=== PATIENT | female | born 1955 | race Asian ===

== ENCOUNTER 2018-09-01 14:34 | Emergency (ER) | payer MEDICAID ==
[~2018-09-01] VITALS: Ht 157.5 cm; Wt 57.2 kg
[~2018-09-01 14:34] MED LIST: AMO500 PO; BIA500 PO; PRI20 PO; ZOC20 PO
[2018-09-01 14:46] VITALS: BP 151/76; Ht 157.5 cm; Wt 57.2 kg
== END 2018-09-01 15:55 | disposition home or self-care (01) ==
LOC: ED 14:34
DX: H11.32 Conjunctival hemorrhage, left eye (principal); E78.00 Pure hypercholesterolemia, unspecified

== ENCOUNTER 2019-07-20 14:58 | Emergency (ER) | payer MEDICAID ==
[~2019-07-20] VITALS: Ht 157.5 cm; Wt 58.1 kg
[2019-07-20 15:16] VITALS: Ht 157.5 cm; Wt 58.1 kg
[2019-07-20 16:33] LABS: BASOPHIL % 0.6 % (0-2); PLATELET COUNT 208 x10^3mcL (130-400); RED CELL DISTRIBUTION WIDTH 13.1 % (11.5-14.5)
[2019-07-20 16:56] LABS: CALCIUM 8.6 mg/dL (8.5-10.1); CARBON DIOXIDE 32.9 mmol/L (21-32); CHLORIDE SERUM 105 mmol/L (98-107); CREATININE SERUM 0.6 mg/dL (0.6-1.0); GFR1 > 60 mL/min; GLUCOSE SERUM 139 mg/dL (74-106); SODIUM SERUM 140 mmol/L (136-145)
[2019-07-20 17:00] LABS: ALBUMIN 3.7 g/dL (3.4-5.0); ALKALINE PHOSPHATASE 50 U/L (46-116); ALT/SGPT 33 U/L (14-59); AST/SGOT 22 U/L (15-37); BILIRUBIN TOTAL 0.3 mg/dL (0.20-1.00); TOTAL PROTEIN, SERUM 7.6 g/dL (6.4-8.2)
[2019-07-20 18:18] VITALS: BP 178/79
== END 2019-07-20 18:18 | disposition home or self-care (01) ==
LOC: ED 14:58
PROVIDERS: Emergency Medicine
DX: R42 Dizziness and giddiness (principal); E78.00 Pure hypercholesterolemia, unspecified